=== PATIENT | male | born 1960 | race Caucasian/White ===

== ENCOUNTER 2019-12-31 12:47 | Emergency (ER) | payer SELFPAY ==
[~2019-12-31] VITALS: Ht 182.9 cm; Wt 80.7 kg
--- NOTE | 2019-12-31 12:47 | NUR ---
BIBA TAKEN TO BED 1
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
[2019-12-31 12:52] VITALS: BP 171/100
[2019-12-31 13:02] VITALS: BP 145/85
--- NOTE | 2019-12-31 13:02 | NUR ---
Patient being evaluated by Dr. Salvador at bedside.
--- NOTE | 2019-12-31 13:13 | NUR ---
TO CT SCAN VIA W/C
--- NOTE | 2019-12-31 13:38 | NUR ---
ANNIA ARGUETA AT BEDSIDE SPEAKING TO PATIENT
--- NOTE | 2019-12-31 13:50 | NUR ---
ENDOCRINOLOGY NURSE AT BEDSIDE
--- NOTE | 2019-12-31 14:23 | NUR ---
DR. MONROY SPEAKING WITH PATIENT AT BEDSIDE
== END 2019-12-31 15:27 | disposition home or self-care (01) ==
LOC: MED 12:47
DX: S09.90XA Unspecified injury of head, initial encounter (principal); S83.91XA Sprain of unspecified site of right knee, initial encounter; S63.502A Unspecified sprain of left wrist, initial encounter; S80.01XA Contusion of right knee, initial encounter; R56.9 Unspecified convulsions; W19.XXXA Unspecified fall, initial encounter; Y93.89 Activity, other specified; Y92.89 Other specified places as the place of occurrence of the external cause; Y99.8 Other external cause status
CPT/HCPCS: 70450; 73110; 73562; 99284